=== PATIENT | male | born 1995 | race Caucasian/White ===

== ENCOUNTER 2016-11-16 15:28 | Emergency (ER) | payer BC ==
[2016-11-16 18:01] VITALS: BP 106/65
--- NOTE | 2016-11-16 18:01 | UC ---
Bite Injury/Animal HPI - HPI Summary HPI Summary: complaint of tick embedded in his waist unsure how long it has been embedded feels itchy denies fever - History of Current Complaint Stated Complaint: TICK BITE Time Seen by Provider: 11/16/16 17:52 Hx Obtained From: Patient - Allergies/Home Medications Allergies/Adverse Reactions: Allergies Allergy/AdvReac Type Severity Reaction Status Date / Time No Known Allergies Allergy Verified 11/16/16 18:02 PMH/Surg Hx/FS Hx/Imm Hx Previously Healthy: Yes - Family History Known Family History: Negative: Cardiac Disease, Hypertension, Diabetes - Social History Occupation: Employed Full-time Lives: With Family Review of Systems Constitutional: Negative Skin: Other - tick bite Eyes: Negative ENT: Negative Respiratory: Negative Cardiovascular: Negative Gastrointestinal: Negative Genitourinary: Negative Motor: Negative Neurovascular: Negative Musculoskeletal: Negative Neurological: Negative Psychological: Negative All Other Systems Reviewed And Are Negative: Yes Physical Exam Triage Information Reviewed: Yes Appearance: No Pain Distress, Well-Nourished Vital Signs Reviewed: Yes Eyes: Positive: Conjunctiva Clear ENT: Positive: Pharynx normal, TMs normal Neck: Positive: No Lymphadenopathy Respiratory: Positive: Lungs clear, Normal breath sounds, No respiratory distress, No accessory muscle use Cardiovascular: Positive: RRR, No Murmur, Pulses Normal Musculoskeletal Exam: Normal Neurological: Positive: Alert Psychological Exam: Normal Skin Exam: Other - left side of torso with tick embedded in skin Skin: Positive: Other - 1.5 cm area of erythema surrounding tick bite Procedures - Procedure Summary Procedure Summary: tick removed with ticktwister Bite Injury Course/Dx - Course Course Of Treatment: exam completed. tick removed without difficulty, will treat with prophlactic dose of doxycycline- followup with PCP - Differential Dx/Diagnosis Differential Diagnosis/HQI/PQRI: Other - tick bite Provider Diagnoses: tick bite Discharge - Discharge Plan Condition: Stable Disposition: HOME Prescriptions: DOXYcycline CAP(*) [DOXYcycline 100MG CAP(*)] 100 mg PO DAILY #2 cap Patient Education Materials: Tick Bite (ED) Referrals: Ciera Alfred MD [Primary Care Provider] - Additional Instructions: Please take antibiotic as directed Increase fluids and rest Take acetaminophen or ibuprofen for fever or pain Please review your discharge instructions. If your symptoms do not improve please call your primary care provider or return to urgent care.
== END 2016-11-16 18:22 | disposition home or self-care (01) ==
LOC: UCCORT 15:28
DX: S30.861A Insect bite (nonvenomous) of abdominal wall, initial encounter (principal); W57.XXXA Bitten or stung by nonvenomous insect and other nonvenomous arthropods, initial encounter; Y93.9 Activity, unspecified; Y92.9 Unspecified place or not applicable
CPT/HCPCS: 99212; G0463

== ENCOUNTER 2017-02-20 12:42 | Emergency (ER) | payer BC ==
[2017-02-20 12:49] VITALS: BP 104/57
[2017-02-20] MEDS ORDERED: Albuterol 2.5 MG/3 ML NEB.SOL* (0.083%) INH ONE (12:58)
--- NOTE | 2017-02-20 13:11 | UC ---
Respiratory Complaint HPI - HPI Summary HPI Summary: Patient presents with a past medical history of allergies. He presents today with complaints of one month onset of cough, that has progressively become more constant. He states that he has increased episodes of coughing, with sputum production. He also states yesterday de developed fever recorded to be between 100.4-104. He also states that he vomited x 1 and diarrhea x 1. He denies any abdominal pain recent travel, ill contact. He states that he has been taking Ibuprophen, and Tyelonol for fever and generalized discomfort with temporary releif. He presents today because he has had ongoing symtpoms which are getting worse. - History of Current Complaint Chief Complaint: UCAbdominalPain Stated Complaint: FEVER Time Seen by Provider: 02/20/17 12:49 Hx Obtained From: Patient Onset/Duration: Gradual Onset, Lasting Weeks Timing: Constant Severity Initially: Mild Severity Currently: Moderate Character: Cough: Productive Aggravating Factors: Allergens, Deep Breaths, Recumbent Position Associated Signs And Symptoms: Positive: URI, Nasal Congestion, Sinus Discomfort - Risk Factors Pulmonary Embolism Risk Factors: Negative Cardiac Risk Factors: Negative Pseudomonas Risk Factors: Negative Tuberculosis Risk Factors: Negative - Allergies/Home Medications Allergies/Adverse Reactions: Allergies Allergy/AdvReac Type Severity Reaction Status Date / Time No Known Allergies Allergy Verified 11/16/16 18:02 PMH/Surg Hx/FS Hx/Imm Hx Previously Healthy: Yes - Surgical History Surgical History: None - Family History Known Family History: Negative: Cardiac Disease, Hypertension, Diabetes - Social History Alcohol Use: Occasionally Substance Use Type: None Smoking Status (MU): Never Smoked Tobacco Review of Systems Constitutional: Fatigue ENT: Sore Throat, Ear Ache, Nasal Discharge, Sinus Congestion Respiratory: Cough Cardiovascular: Negative Gastrointestinal: Negative All Other Systems Reviewed And Are Negative: Yes Physical Exam Triage Information Reviewed: Yes Appearance: Ill-Appearing, Thin Vital Signs: Initial Vital Signs Temp 100.5 F 02/20/17 12:45 Pulse 109 02/20/17 12:45 Resp 22 02/20/17 12:45 BP 104/57 02/20/17 12:45 Pulse Ox 99 02/20/17 12:45 Vital Signs Reviewed: Yes Eye Exam: Normal ENT Exam: Normal ENT: Positive: Other: - three papules noted soft palate. Dental Exam: Normal Neck exam: Normal Respiratory: Positive: Rhonchi - diminished lower lobes, with rll rhonci noted. Cardiovascular Exam: Normal UC Diagnostic Evaluation - Laboratory O2 Sat by Pulse Oximetry: 99 Respiratory Course/Dx - Course Course Of Treatment: Patient presented with respiratory symtpoms consistent with acute bronchitis therefore ABX were prescribed and the patient was discharged home in stable condition. - Differential Dx/Diagnosis Provider Diagnoses: bronchitis Discharge - Discharge Plan Condition: Stable Disposition: HOME Prescriptions: Albuterol HFA INHALER* [Ventolin HFA Inhaler*] 1 puff INH Q4H PRN #1 mdi PRN Reason: Cough DOXYcycline CAP(*) [DOXYcycline 100MG CAP(*)] 100 mg PO BID #20 cap Prednisone [Deltasone] 20 mg PO DAILY #5 tab Patient Education Materials: Acute Bronchitis (ED) Referrals: No Primary Care Phys,NOPCP [Primary Care Provider] -
[2017-02-20] MEDS ORDERED: DOXYcycline CAP(*) 100 MG PO ONE (13:55)
--- NOTE | 2017-02-20 14:05 | RAD ---
INDICATION: Cough for one month. Fever started yesterday. COMPARISON: No relevant prior exams available on the [facility] PACS for comparison. TECHNIQUE: Dual energy PA and routine lateral views of the chest were obtained. REPORT: Elevated lung volumes. No focal pulmonary lesion, compelling alveolar consolidation, pleural effusion, pneumothorax. The heart, pulmonary vasculature, and mediastinal contours are unremarkable. IMPRESSION: Elevated lung volumes may reflect obstructive lung disease or exuberant inspiratory effort for exam in a young patient. No evidence for pneumonia or radiographic evidence for mediastinal or hilar lymphadenopathy.
[2017-02-21 14:32] LABS: Mono Internal Control QC Line Present
[2017-02-21 14:39] LABS: Manual Entry Verification HAN0055
== END 2017-02-20 14:00 | disposition home or self-care (01) ==
LOC: UCEAST 12:42
DX: J40 Bronchitis, not specified as acute or chronic (principal)
CPT/HCPCS: 36415; 71020; 86308; 99212; A9270-GY; G0463